=== PATIENT | female | born 1970 | race Caucasian/White ===

== ENCOUNTER 2017-02-09 03:41 | Inpatient (IN) | payer OTHER ==
[~2017-02-09] VITALS: Ht 165.1 cm; Wt 118.0 kg
[2017-02-09] MEDS ORDERED: ASPIRIN 81 MG TABLET CHEW ONE (04:22)
[2017-02-09] MEDS ORDERED: NITROGLYCERIN OINT 2%, 1GM TP ONE (04:23)
[2017-02-09 05:14] LABS: HEMATOCRIT 39.1 % (34.6-47.8)
[2017-02-09 05:30] LABS: BLOOD UREA NITROGEN 19 mg/dL (7-18)
[2017-02-09 05:35] LABS: ASPARTATE AMINO TRANSFERASE 17 U/L (15-37)
[2017-02-09 05:37] LABS: IS PT STATUS REG ER OR PRE ER? YES
[2017-02-09] MEDS ORDERED: SODIUM CHLORIDE FLUSH 10ML SYR IVF PRN (06:30)
[2017-02-09] MEDS ORDERED: ACETAMINOPHEN 325 MG TABLET PO PRN (07:30)
[2017-02-09] MEDS ORDERED: morphine SULFATE 10 MG/ML, 1ML IV PRN (07:30)
[2017-02-09] MEDS ORDERED: NITROGLYCERIN 0.4 MG BOTTLE (25 TABS) SL PRN (07:30)
[2017-02-09] MEDS ORDERED: NITROGLYCERIN 0.4 MG/SPRAY SL PRN (07:30)
[2017-02-09 08:14] VITALS: BP 127/81
[2017-02-09] MEDS: PLEASE ENTER HEIGHT AND WEIGHT MC SCH ×2 (08:30→09:36)
[2017-02-09] MEDS ORDERED: ACETAMINOPHEN 325 MG TABLET ONE (08:52)
[2017-02-09] MEDS ORDERED: SODIUM CHLORIDE FLUSH 10ML SYR IVF SCH (09:00)
[2017-02-09 09:43] LABS: IS PT STATUS REG ER OR PRE ER? NO
[2017-02-09] MEDS ORDERED: REGADENOSON 0.4 MG/5 ML SYRINGE ONE (10:12)
[2017-02-09 13:24] VITALS: BP 112/74
== END 2017-02-09 16:11 | disposition home or self-care (01) | DRG 313 ==
LOC: ED 06:46 → EDIP 06:47 → ED 06:50 → SUATTDRO 07:19 → 5SO 08:04
PROVIDERS: ADMIT Hospitalist; ATTEND Hospitalist
DX: R07.89 Other chest pain (principal); Z90.49 Acquired absence of other specified parts of digestive tract; Z98.84 Bariatric surgery status; Z79.82 Long term (current) use of aspirin
CPT/HCPCS: 36415; 78452; 80053; 80061; 84484; 84703; 85025; 93005; 93017; J2785; A9502; C9898